=== PATIENT | male | born 1960 | race Caucasian/White ===

== ENCOUNTER → 2016-11-13 15:19 | Outpatient (CLI) | payer OTHER ==
[2016-11-17 03:09] LABS: RMSF IGM 0.34 index (0.00-0.89)
[2016-11-19 11:13] LABS: LYME WB - IGG P18 AB Absent (()); LYME WB - IGG P23 AB Present (()); LYME WB - IGG P28 AB Absent (()); LYME WB - IGG P30 AB Absent (()); LYME WB - IGG P39 AB Absent (()); LYME WB - IGG P41 AB Absent (()); LYME WB - IGG P45 AB Absent (()); LYME WB - IGG P58 AB Absent (()); LYME WB - IGG P66 AB Absent (()); LYME WB - IGG P93 AB Absent (()); LYME WB - IGG WB INTERP Negative (()); LYME WB - IGM P23 AB Present (()); LYME WB - IGM P39 AB Absent (()); LYME WB - IGM P41 AB Present (()); LYME WB - IGM WB INTERP Positive (())
== END | disposition home or self-care (01) ==
LOC: D.LABREF 15:19
PROVIDERS: Family Medicine
DX: S80.861A Insect bite (nonvenomous), right lower leg, initial encounter (principal)

== ENCOUNTER → 2016-11-13 19:27 | Outpatient (CLI) | payer OTHER | END | disposition home or self-care (01) | LOC: D.LABREF 19:27 | DX: S80.861A Insect bite (nonvenomous), right lower leg, initial encounter (principal) ==

== ENCOUNTER → 2016-11-29 19:16 | Outpatient (CLI) | payer SELFPAY | END | disposition home or self-care (01) | LOC: D.LABREF 19:16 | DX: A69.20 Lyme disease, unspecified (principal) ==